=== PATIENT | female | born 1955 | race Caucasian/White ===

== ENCOUNTER 2019-01-06 20:09 | Emergency (ER) | payer OTHER ==
[~2019-01-06] VITALS: Ht 157.5 cm; Wt 59.0 kg
== END 2019-01-06 22:52 | disposition home or self-care (01) ==
LOC: ER 20:09
DX: M94.0 Chondrocostal junction syndrome [Tietze] (principal); R05 Cough

== ENCOUNTER 2020-10-31 16:31 | Emergency (ER) | payer OTHER ==
[~2020-10-31] VITALS: Ht 154.9 cm; Wt 57.2 kg
== END 2020-10-31 20:08 | disposition home or self-care (01) ==
LOC: ER 16:31
DX: K08.89 Other specified disorders of teeth and supporting structures (principal)

== ENCOUNTER 2021-02-06 13:23 | Emergency (ER) | payer OTHER ==
[~2021-02-06] VITALS: Ht 157.5 cm; Wt 57.2 kg
[2021-02-06] MEDS ORDERED: KETO10TA2 PO (16:51)
[2021-02-06] MEDS ORDERED: NORFLEX100MG PO (16:51)
== END 2021-02-06 18:56 | disposition home or self-care (01) ==
LOC: ER 13:23
DX: M75.52 Bursitis of left shoulder (principal)

== ENCOUNTER 2021-02-15 18:35 | Emergency (ER) | payer OTHER ==
[~2021-02-15] VITALS: Ht 157.5 cm; Wt 57.2 kg
[~2021-02-15 18:35] MED LIST: KETO10TA2 PO; NORFLEX100MG PO
== END 2021-02-16 01:02 | disposition home or self-care (01) ==
LOC: ER 18:35
DX: K52.9 Noninfective gastroenteritis and colitis, unspecified (principal); Z11.52 Encounter for screening for COVID-19